=== PATIENT | female | born 1935 | race Caucasian/White ===

== ENCOUNTER → 2016-03-23 | Outpatient (REF) | payer MEDICARE, OTHER ==
[~2016-03-23] MED LIST: CALC500C16 PO; FOSA70TA PO; LOPE2TAB3 PO; PRED25TA PO; SYST1SOL OU; TYLE500T78 PO; VITA400T13 PO; VITMTA PO
== END ==
LOC: M LAB REF 12:41
PROVIDERS: ATTEND Internal Medicine Medical Oncology
DX: C18.9 Malignant neoplasm of colon, unspecified (principal)

== ENCOUNTER → 2016-06-01 | Outpatient (REF) | payer MEDICARE, OTHER | LOC: M LAB REF 12:32 | PROVIDERS: ATTEND Internal Medicine Medical Oncology | DX: C19 Malignant neoplasm of rectosigmoid junction (principal) ==

== ENCOUNTER → 2016-09-15 | Outpatient (REF) | payer MEDICARE, OTHER | LOC: M LAB REF 13:29 | PROVIDERS: ATTEND Internal Medicine Medical Oncology | DX: C20 Malignant neoplasm of rectum (principal) ==

== ENCOUNTER → 2017-01-17 | Outpatient (REF) | payer MEDICARE, OTHER | LOC: M LAB REF 12:15 | PROVIDERS: ATTEND Internal Medicine Medical Oncology | DX: C20 Malignant neoplasm of rectum (principal) ==

== ENCOUNTER → 2017-02-17 | Outpatient (CLI) | payer MEDICARE, OTHER | END | disposition home or self-care (01) | LOC: M IRPRO 12:15 | DX: Z45.2 Encounter for adjustment and management of vascular access device (principal); C18.9 Malignant neoplasm of colon, unspecified; C78.7 Secondary malignant neoplasm of liver and intrahepatic bile duct | CPT/HCPCS: 36590 ==

== ENCOUNTER → 2017-09-13 | Outpatient (REF) | payer MEDICARE, OTHER ==
[2017-09-13 13:47] LABS: CARCINOEMBRYONIC ANTIGEN < 0.5 NG/ML (<2.5)
== END ==
LOC: M LAB REF 13:06
DX: C20 Malignant neoplasm of rectum (principal); C78.7 Secondary malignant neoplasm of liver and intrahepatic bile duct
CPT/HCPCS: 82378

== ENCOUNTER → 2020-11-10 | Outpatient (CLI) | payer MEDICARE, OTHER ==
[~2020-11-10] MED LIST changes: +ACET500T15 PO; +D-50CAP PO; +VITA100054 PO
--- NOTE | 2020-11-10 09:38 | REP ---
INDICATION: AAA COMPARISON: None. TECHNIQUE: Multiple ultrasonographic images of the abdominal aorta were obtained from the level of the celiac access to the aortoiliac bifurcation and the longitudinal and transverse scan planes along with color Doppler imaging. FINDINGS: The maximal AP dimension of the abdominal aorta as measured in the longitudinal scan plane is 3.3 cm. IMPRESSION: There is a 3.3 cm sized infrarenal abdominal aortic aneurysm which measures approximately 8 cm in length. The technologist measured this including the outer wall of the known stent. Since there are no priors for comparison contrast-enhanced CT examination of the abdomen and pelvis for further evaluation is recommended. <Electronically signed by Joshua Clayton > 11/10/20 0942
== END ==
LOC: M RAD 09:02
PROVIDERS: ATTEND Surgery
DX: I71.4 Abdominal aortic aneurysm, without rupture (principal)

== ENCOUNTER 2022-07-29 13:13 | Emergency (ER) | payer MEDICARE, OTHER ==
[~2022-07-29] VITALS: Ht 160 cm; Wt 56.8 kg
[~2022-07-29 13:13] MED LIST changes: +ALEN70TA87 PO; +ASPI-1 PO; +ATOR40TA75 PO; +CYAN2500 SL; +D 101000 PO; -FOSA70TA PO
[2022-07-29] MEDS ORDERED: ISOVUE-370 76% 100ML VIAL As Ordered ONE (14:28)
[2022-07-29 16:15] VITALS: BP 130/68; TEMP 96.8; O2SAT 98
== END 2022-07-29 16:28 | disposition home or self-care (01) ==
LOC: M ED 13:13
DX: S70.02XA Contusion of left hip, initial encounter (principal); W22.8XXA Striking against or struck by other objects, initial encounter; Z85.048 Personal history of other malignant neoplasm of rectum, rectosigmoid junction, and anus; Z79.82 Long term (current) use of aspirin; Z79.899 Other long term (current) drug therapy